=== PATIENT | male | born 1955 | race Caucasian/White ===

== ENCOUNTER 2017-01-29 18:02 | Emergency (ER) | payer OTHER ==
[2017-01-29] MEDS ORDERED: IBUPROFEN 600 MG TAB PO ONE ×2 (18:21→19:00)
--- NOTE | 2017-01-29 18:27 | EDPHY ---
H & P Stated Complaint: sob-hx rib fx-sent by pcp-cough HPI/ROS: HPI CHIEF COMPLAINT: Shortness of breath, cough, rib pain HISTORY OF PRESENT ILLNESS: This patient very pleasant 61-year-old male, past medical history for hyperlipidemia, he states on Thursday took a mechanical trip and fall on stairs and had the corner of her stair going to the right posterior ribs. Since then he has had pain. Tells me he has been short of breath and having cough nonproductive. Tells me that he went to urgent care today had an x -ray there was a rib fracture seen however there was "also fluid seen on his lung" patient here in the emergency room for further evaluation and possible CT scan of his chest. Past Medical History: Hyperlipidemia Past Surgical History: No recent pertinent surgical history. Social History: Smokes tobacco, denies illicit drugs or alcohol, [facility] Family History: Noncontributory ROS REVIEW OF SYSTEMS: A comprehensive 10 point review of systems is otherwise negative aside from elements mentioned in the history of present illness. Exam Constitutional triage nursing summary reviewed, vital signs reviewed, awake/ alert. Eyes normal conjunctivae and sclera, EOMI, PERRLA. HENT normal inspection, atraumatic, moist mucus membranes, no epistaxis, neck supple/ no meningismus, no raccoon eyes. Respiratory decreased breath sounds bilaterally, crackles on the right lung, normal breath sounds, no respiratory distress, no wheezing. Cardiovascular rate normal, regular rhythm, no murmur, no edema, distal pulses normal. Gastrointestinal soft, non-tender, no rebound, no guarding, normal bowel sounds, no distension, no pulsatile mass. Genitourinary no CVA tenderness. Musculoskeletal tender palpation over the posterior ribs on the right side specifically around ribs 7 and 8. No flail chest no crepitus, no significant ecchymosis no midline vertebral tenderness, full range of motion, no calf swelling, no tenderness of extremities, no meningismus, good pulses, neurovascularly intact. Skin pink, warm, & dry, no rash, skin atraumatic. Neurologic awake, alert and oriented x 3, AAOx3, moves all 4 extremities equally, motor intact, sensory intact, CN II-XII intact, normal cerebellar, normal vision, normal speech. Psychiatric normal mood/affect. Heme/Lymph/Immune no lymphadenopathy. Differential Diagnosis: Includes but is not limited to in a particular order; rib fracture, pneumothorax, hemothorax, atelectasis, pneumonia Medical Decision Making: Plan for this patient is IV establishment, blood work , patient had a CT scan of the chest with IV contrast for trauma evaluate for multiple rib fractures pneumothorax hemothorax and pneumonia atelectasis. Patient also received a DuoNeb breathing treatment. Patient declined pain medicine at this time is taking ibuprofen prior to arrival. Re-evaluation: CT scan of the chest with IV contrast for trauma. The results of the study are skin shows a left right anterior 6th rib fracture, and a right 9th and 10th posterior rib fracture. No pneumothorax. Trace pleural effusion. No pneumonia. The study was read by Dr. Maciel. I viewed the images myself on the PACS system. 1957: I have updated this patient on his CT scan findings he has [address] the patient on narcotic pain medicine incentive spirometer stool softeners albuterol inhaler. He understands if develops worsening shortness of breath, worsening cough, fever he needs return to the emergency room for evaluation of pneumonia in the setting of multiple rib fractures at this time there is no evidence he has pneumothorax on CT scan pneumonia. He has trace pleural effusion. 3 rib fractures. He is comfortable being discharged comfortable plan. Patient will be given a prescription for azithromycin to hold however he gets fever shortness of breath productive cough he may start taking this however feels ill return to the ER. Source: Patient - Personal History Current Tetanus/Diphtheria Vaccine: Unsure Current Tetanus Diphtheria and Acellular Pertussis (TDAP): Unsure - Medical/Surgical History Hx Asthma: No Hx Chronic Respiratory Disease: No Hx Diabetes: No Hx Cardiac Disease: No Hx Renal Disease: No Hx Cirrhosis: No Hx Alcoholism: No Hx HIV/AIDS: No Hx Splenectomy or Spleen Trauma: No Other PMH: R rib fractures after fall up 2 steps thursday - Social History Smoking Status: Current every day smoker Constitutional: Initial Vital Signs Temperature (C) 36.5 C 01/29/17 18:16 Heart Rate 75 01/29/17 18:16 Respiratory Rate 16 01/29/17 18:16 Blood Pressure 128/70 H 01/29/17 18:16 O2 Sat (%) 94 01/29/17 18:16 O2 Delivery Mode Room Air Allergies/Adverse Reactions: No Known Allergies Allergy (Unverified 06/30/11 10:13) Home Medications: Medication Instructions Recorded AZITHROMYCIN [Z-PACK] 250 mg PO DAILY #6 tab 01/29/17 Albuterol [Proventil Inhaler HFA 1 - 2 puffs IH Q4H #1 mdi 01/29/17 (*)] Alirocumab [Praluent Syringe] 01/29/17 Hydrocodone/APAP 5/325 [Indian 1 - 2 tab PO Q4H PRN #20 tab 01/29/17 5/325] Medical Decision Making - Data Points Laboratory Results: Laboratory Results 01/29/17 18:51 01/29/17 18:51 01/29/17 01/29/17 01/29/17 18:51 18:51 18:51 WBC 9.08 10^3/uL 10^3/uL (3.80-9.50) RBC 4.95 10^6/uL 10^6/uL (4.40-6.38) Hgb 16.0 g/dL g/dL (13.7-17.5) Hct 46.9 % % (40.0-51.0) MCV 94.7 fL fL (81.5-99.8) MCH 32.3 pg pg (27.9-34.1) MCHC 34.1 g/dL g/dL (32.4-36.7) RDW 12.5 % % (11.5-15.2) Plt Count 223 10^3/uL 10^3/uL (150-400) MPV 9.5 fL fL (8.7-11.7) Neut % (Auto) 69.3 % % (39.3-74.2) Lymph % (Auto) 18.0 % % (15.0-45.0) [place] % (Auto) 8.9 % % (4.5-13.0) Eos % (Auto) 2.9 % % (0.6-7.6) Baso % (Auto) 0.6 % % (0.3-1.7) Nucleat RBC Rel Count 0.0 % % (0.0-0.2) Absolute Neuts (auto) 6.30 10^3/uL 10^3/uL (1.70-6.50) Absolute Lymphs (auto) 1.63 10^3/uL 10^3/uL (1.00-3.00) Absolute Monos (auto) 0.81 10^3/uL H 10^3/uL (0.30-0.80) Absolute Eos (auto) 0.26 10^3/uL 10^3/uL (0.03-0.40) Absolute Basos (auto) 0.05 10^3/uL 10^3/uL (0.02-0.10) Absolute Nucleated RBC 0.00 10^3/uL 10^3/uL (0-0.01) Immature Gran % 0.3 % % (0.0-1.1) Immature Gran # 0.03 10^3/uL 10^3/uL (0.00-0.10) PT 12.9 SEC SEC (12.0-15.0) INR 0.98 (0.83-1.16) APTT 26.8 SEC SEC (23.0-38.0) Sodium 138 mEq/L mEq/L (134-144) Potassium 4.6 mEq/L mEq/L (3.5-5.2) Chloride 105 mEq/L mEq/L (97-110) Carbon Dioxide 23 mEq/l mEq/l (22-31) Anion Gap 10 mEq/L mEq/L (8-16) BUN 18 mg/dL mg/dL (7-23) Creatinine 0.9 mg/dL mg/dL (0.7-1.3) Estimated GFR > 60 Glucose 101 mg/dL H mg/dL (70-100) Calcium 9.8 mg/dL mg/dL (8.5-10.4) Medications Given: Discontinued Medications Albuterol/Ipratropium (Duoneb) 3 ml IH EDNOW ONE Stop: 01/29/17 18:38 Last Admin: 01/29/17 19:00 Dose: 3 ml Sodium Chloride (Ns) 1,000 mls @ 0 mls/hr IV ONCE ONE PRN Reason: Wide Open Stop: 01/29/17 18:30 Last Admin: 01/29/17 19:06 Dose: 1,000 mls Ibuprofen (Motrin) 600 mg PO EDNOW ONE Stop: 01/29/17 18:22 Last Admin: 01/29/17 19:06 Dose: Not Given Departure - Departure Disposition: Home, Routine, Self-Care Clinical Impression: Rib fracture Qualifiers: Encounter type: initial encounter Rib fracture type: single rib Fracture type: closed Laterality: right Qualified Code(s): S22.31XA - Fracture of one rib, right side, initial encounter for closed fracture Condition: Good Instructions: Rib Fracture (ED) Additional Instructions: 1. stay well-hydrated. 2. return to the emergency room if you have worsening symptoms includes worsening pain, shortness of breath, fever nausea vomiting. 3. Your CT scan shows that you have 3 rib fractures your right 6th rib, right 9th rib, right 10th rib. No evidence of collapsed lung or pneumonia. Referrals: Eric Ford MD [Primary Care Provider] - As per Instructions Prescriptions: Albuterol [Proventil Inhaler HFA (*)] 1 - 2 puffs IH Q4H #1 mdi AZITHROMYCIN [Z-PACK] 250 mg PO DAILY #6 tab Hydrocodone/APAP 5/325 [Indian 5/325] 1 - 2 tab PO Q4H PRN #20 tab PRN Reason: Pain, Moderate
[2017-01-29] MEDS ORDERED: NS 1,000 ML IV ONE (18:29)
[2017-01-29] MEDS ORDERED: IPRATROPIUM/ALBUTEROL 3 ML DEYVIAL IH ONE (18:37)
[2017-01-29 19:01] LABS: % IMMATURE GRANULYOCYTES 0.3 % (0.0-1.1); ABSOLUTE IMMATURE GRANULOCYTES 0.03 10^3/uL (0.00-0.10); ADD DIFF? NO; ADD MORPH? NO; ADD SCAN? NO; ATYPICAL LYMPHOCYTE FLAG 10 (0-99); FRAGMENT RBC FLAG 0 (0-99); HEMATOCRIT 46.9 % (40.0-51.0); LEFT SHIFT FLG 0 (0-99); LIPEMIA HEMOLYSIS FLAG 90 (0-99); MEAN CELL HEMOGLOBIN 32.3 pg (27.9-34.1); MEAN CELL HEMOGLOBIN CONCENTR. 34.1 g/dL (32.4-36.7); MEAN CELL VOLUME 94.7 fL (81.5-99.8); MEAN PLATELET VOLUME 9.5 fL (8.7-11.7); PLATELET CLUMPS FLAG 0 (0-99); PLATELET COUNT 223 10^3/uL (150-400); RED BLOOD CELL COUNT 4.95 10^6/uL (4.40-6.38); RED CELL DISTRIBUTION WIDTH 12.5 % (11.5-15.2)
[2017-01-29 19:10] LABS: INR 0.98 (0.83-1.16); PROTIME(PATIENT) 12.9 SEC (12.0-15.0)
[2017-01-29 19:11] LABS: APTT 26.8 SEC (23.0-38.0)
[2017-01-29 19:14] LABS: ANION GAP 10 mEq/L (8-16); CALCIUM 9.8 mg/dL (8.5-10.4); CARBON DIOXIDE 23 mEq/l (22-31); CHLORIDE 105 mEq/L (97-110); CREATININE 0.9 mg/dL (0.7-1.3); GLOMERULAR FILTRATION RATE > 60; GLUCOSE 101 mg/dL (70-100); POTASSIUM 4.6 mEq/L (3.5-5.2); SODIUM 138 mEq/L (134-144)
[2017-01-29] MEDS ORDERED: IOPAMIDOL (ISOVUE-300) 100 ML BTL IV ONE (19:24)
[2017-01-29 20:27] VITALS: BP 134/82; PULSE 69; RESP 17; TEMP 98.1; O2SAT 95
== END 2017-01-29 20:26 | disposition home or self-care (01) ==
DX: S22.31XA Fracture of one rib, right side, initial encounter for closed fracture (principal); F17.200 Nicotine dependence, unspecified, uncomplicated; W10.9XXA Fall (on) (from) unspecified stairs and steps, initial encounter
CPT/HCPCS: Q9967

== ENCOUNTER 2017-02-03 07:58 | Emergency (ER) | payer OTHER ==
--- NOTE | 2017-02-03 08:11 | EDPHY ---
HPI/HX/ROS/PE/MDM Narrative: CHIEF COMPLAINT: Increasing rib pain. HPI: The patient is a 61-year-old male who presents with worsening rib pain since . He was seen in the ED at that time and diagnosed with multiple rib fractures by CT. He reports that since being discharged he has worsening "crackles" in his chest and now the pain is worsening. Additionally, his pain medications are causing him constipation. He denies fever. He has also been taking Azithromycin for cough and congestion that he still has today. REVIEW OF SYSTEMS: Aside from elements discussed in the HPI, a comprehensive 10-point review of systems was reviewed and is negative. PMH: Pancreatitis, rib fractures. SOCIAL HISTORY: Smoker. PHYSICAL EXAM: General: Patient is alert, in no acute distress. ENT: Eyes are normal to inspection. ENT inspection normal. Neck: Normal inspection. Full range of motion. Respiratory: No respiratory distress. Diminished air movement. Mild rales on right side. Cardiovascular: Regular rate and rhythm. Strong peripheral pulses. Abdomen: The abdomen is nontender to palpation. There are no peritoneal signs. There are normal bowel sounds. Back: Normal to inspection. No tenderness to palpation. Skin: Normal color. No rash. Warm and dry. Extremities: Normal appearance. Full range of motion. Neuro: Oriented x3. Normal motor function. Normal sensory function. Portions of this note were transcribed by an ED scribe. I personally performed the history, physical exam, and medical decision making; and confirm the accuracy of the information in the transcribed note. ED Course: Abdomen x-ray and chest x-ray ordered. 0945: Chest CTA ordered. 1030: Patient complaining of pain. 1 tab PO Percocet administered. 1212: Chest CT reported to me negative for new findings by Dr. Wood. Study: PA and Lateral Chest X-ray Indication: Chest pain Results: I viewed the images myself on the PACS system. The radiologist interpretation is: Possible small right lung laceration/posttraumatic pneumatocele vs consolidation surrounding a pre-existing pleural bleb in the right lower lateral lung. Study: Abdominal X-ray Indication: Constipation. Results: I viewed the images myself on the PACS system. My interpretation of the images is: constipation. The radiologist Dr. Bravo agrees. Study: CTA of the chest. Indication: Pain. Results: 1. Increase in mild right pleural effusion with adjacent subsegmental atelectasis right lower lobe and inferior aspect right middle lobe. 2. Increase in mucous layering in the right mainstem bronchus as well as peribronchial thickening and mucous to the right middle lobe and right lower lobe. 3. Moderate atherosclerotic calcification associated with the proximal to mid LAD. 4. Previous surgical resection of the distal pancreas body and tail similar in appearance to CT study of August,. 5. Nondisplaced fractures anterolateral right sixth and seventh ribs as well as lateral right ninth and 10th ribs and posterior right eighth through 10th ribs. The study was read by the radiologist, Dr. Wood. I viewed the images myself on the PACS system. MDM: This patient presents with continued pain on his right thorax after previously diagnosed rib fractures. His secondary complaint is abdominal bloating and constipation. We performed a repeat CT chest to ensure no post-traumatic complications, which is relatively unchanged from prior. I have reinforced need for IS use given risk for PNA. We have prescribed MgCitrate for constipation. I see no sign of PTX, PNA, TAD, new hemothorax or liver injury. - Data Points Medications Given: Discontinued Medications Oxycodone/Acetaminophen (Percocet 5/325) 1 tab PO EDNOW ONE Stop: 02/03/17 10:31 Last Admin: 02/03/17 10:31 Dose: 1 tab General Time Seen by Provider: 02/03/17 08:11 Initial Vital Signs: Initial Vital Signs Temperature (C) 36.3 C 02/03/17 08:00 Heart Rate 77 02/03/17 08:00 Respiratory Rate 16 02/03/17 08:00 Blood Pressure 123/81 H 02/03/17 08:00 O2 Sat (%) 97 02/03/17 08:00 O2 Delivery Mode Room Air Allergies/Adverse Reactions: No Known Allergies Allergy (Verified 02/03/17 08:00) Home Medications: Medication Instructions Recorded AZITHROMYCIN [Z-PACK] 250 mg PO DAILY #6 tab 01/29/17 Albuterol [Proventil Inhaler HFA 1 - 2 puffs IH Q4H #1 mdi 01/29/17 (*)] Alirocumab [Praluent Syringe] 01/29/17 Bisacodyl [Dulcolax] 5 mg PO DAILY #20 tablet. 01/29/17 Hydrocodone/APAP 5/325 [[place] 1 - 2 tab PO Q4H PRN #20 tab 01/29/17 5/325] Ketorolac Tromethamine [Toradol] 10 mg PO Q6H #16 tab 02/03/17 oxyCODONE/APAP 5/325 [Percocet 1 - 2 tab PO Q6H PRN #14 tab 02/03/17 5/325 (*)] Departure - Departure Disposition: Home, Routine, Self-Care Clinical Impression: Constipation, Rib fractures Condition: Good Instructions: Constipation (ED), Rib Fracture (ED) Referrals: Eric Ford MD [Primary Care Provider] - As per Instructions Prescriptions: Ketorolac Tromethamine [Toradol] 10 mg PO Q6H #16 tab oxyCODONE/APAP 5/325 [Percocet 5/325 (*)] 1 - 2 tab PO Q6H PRN #14 tab PRN Reason: Pain, Severe Report Scribed for: Myron Stovall Report Scribed by: Watson Dunn Date of Report: 02/03/17 Time of Report: 08:16
[2017-02-03] MEDS ORDERED: IOPAMIDOL (ISOVUE-300) 100 ML BTL IV ONE ×2 (10:16→10:39)
[2017-02-03] MEDS ORDERED: OXYCODONE/APAP 5/325 TAB PO ONE (10:30)
[2017-02-03 10:33] VITALS: RESP 18
[2017-02-03] MEDS ORDERED: KETOROLAC 30 MG/1 ML SDV IVP ONE (12:37)
[2017-02-03] MEDS ORDERED: MAGNESIUM CITRATE 300 ML BOTTLE PO ONE (12:48)
[2017-02-03 12:49] VITALS: BP 126/80; PULSE 85; TEMP 98.1; O2SAT 95
== END 2017-02-03 12:56 | disposition home or self-care (01) ==
DX: S22.41XD Multiple fractures of ribs, right side, subsequent encounter for fracture with routine healing (principal); K59.00 Constipation, unspecified; F17.200 Nicotine dependence, unspecified, uncomplicated; X58.XXXD Exposure to other specified factors, subsequent encounter
CPT/HCPCS: 96374; J1885; Q9967